=== PATIENT | male | born 1950 | race Caucasian/White ===

== ENCOUNTER 2017-01-26 10:24 | Emergency (ER) | payer MEDICARE, OTHER ==
[~2017-01-26 10:24] MED LIST: ANORO ELLIPTA1 EAC1 INH; ASPIRIN EC81 MG PO; ISOSORBIDE MONO30 M4 PO; LIPITOR40 M1 PO; OMEPRAZOLE20 M3 PO; PRO AIR INHALER INH; TAMSULOSIN HCL0.4 M1 PO; TOPROL XL25 M1 PO; TURMERIC500 M2 PO; [UNRECOGNIZED DRUG - OTHER] PO
[2017-01-26] MEDS ORDERED: VITAMIN C500 M3 PO (10:45)
[2017-01-26] MEDS ORDERED: SYMBICORT 160-1 PUFF INH (10:46)
[2017-01-26] MEDS ORDERED: CHEWABLE-VITE1 EAC1 PO (10:46)
[2017-01-26 11:10] LABS: BASO % 0.5 % (0-2); EOS % 1.3 % (0-7); EOSINOPHIL ABSOLUTE COUNT 0.1 tho/cmm (0.0-0.7); HCT-HEMATOCRIT 50.5 % (36.0-53.5); IMMATURE GRANULOCYTES ABSOLUTE 0.02 tho/cmm (0-0.03); IMMATURE GRANULOCYTES PERCENT 0.3 % (0-0.3); LYMPH % 13.5 % (20-45); LYMPH ABSOLUTE COUNT 0.8 tho/cmm (0.8-4.5); MCH (MEAN CORPUSCULAR HGB) 31.5 pg (28.0-32.0); MCHC MEAN CORPUSCULAR HGB CONC 33.7 % (32.0-36.0); MCV (MEAN CELL VOLUME) 93.5 fl (82.0-96.0); MEAN PLATELET VOLUME 9.3 cmc (9.4-12.4); MONO % 15.3 % (0-12); MONOCYTE ABSOLUTE COUNT 0.9 tho/cmm (0.0-1.2); NEUTROPHIL ABSOLUTE COUNT 4.2 tho/cmm (1.6-8.0); NEUTROPHIL-AUTOMATED 4.2 tho/cmm (1.6-8.0); NEUTROPHILS % 69.1 % (40-80); PLATELET COUNT 188 tho/cmm (150-450); RED CELL DISTRIBUTION WIDTH 14.3 % (12.4-16.4); WHITE BLOOD COUNT 6.1 tho/cmm (4.0-10.0)
[2017-01-26 11:29] LABS: ALB/GLOB RATIO 0.9 (0.8-2.0); ALBUMIN 3.5 g/dl (3.5-5.0); ALKALINE PHOSPHATASE 46 U/L (33-138); ALT/SGPT 27 U/L (12-78); BILIRUBIN,TOTAL 1.1 mg/dl (0.0-1.5); BLOOD UREA NITROGEN 11 mg/dl (6-24); CARBON DIOXIDE-VENOUS 26 mmol/L (22-32); CHLORIDE 106 mmol/l (96-110); CREATININE 0.78 mg/dl (0.60-1.30); GLUCOSE 91 mg/dL (70-110); SODIUM 141 mmol/L (135-145); eGFR VALUE FOR BLACK >90 mL/Min
[2017-01-26 11:31] LABS: ANION GAP 14 mmol/L (0-20); AST/SGOT 40 U/L (10-40); POTASSIUM 4.7 mmol/L (3.7-5.1)
[2017-01-26 11:45] LABS: PROCALCITONIN <0.05 ng/ml (0.05-0.09)
[2017-01-26] MEDS ORDERED: PREDNISONE10 M1 PO (13:16)
[2017-01-26] MEDS ORDERED: AUGMENTIN 875-1 EAC2 PO (13:16)
[2017-01-26] MEDS ORDERED: ALBUTEROL2.5 MG/3 M INH (13:16)
== END 2017-01-26 13:43 ==
LOC: EDMED 10:24
PROVIDERS: Emergency Medicine
DX: J44.1 Chronic obstructive pulmonary disease with (acute) exacerbation (principal); J32.9 Chronic sinusitis, unspecified; I25.10 Atherosclerotic heart disease of native coronary artery without angina pectoris; I10 Essential (primary) hypertension; Z85.118 Personal history of other malignant neoplasm of bronchus and lung; Z95.5 Presence of coronary angioplasty implant and graft; Z98.890 Other specified postprocedural states; F17.200 Nicotine dependence, unspecified, uncomplicated; Z79.82 Long term (current) use of aspirin; Z79.51 Long term (current) use of inhaled steroids; Z79.899 Other long term (current) drug therapy
CPT/HCPCS: J2930; J7030